=== PATIENT | male | born 1975 | race Caucasian/White ===

== ENCOUNTER → 2017-05-01 | Outpatient (CLI) | payer OTHER | LOC: LAB SHORT 18:12 → LAB 18:12 | DX: E10.65 Type 1 diabetes mellitus with hyperglycemia (principal); H35.00 Unspecified background retinopathy; R80.9 Proteinuria, unspecified | CPT/HCPCS: 82043 ==

== ENCOUNTER → 2017-06-04 | Outpatient (CLI) | payer OTHER | LOC: LAB 14:30 | DX: E10.65 Type 1 diabetes mellitus with hyperglycemia (principal); R80.9 Proteinuria, unspecified | CPT/HCPCS: 82043 ==

== ENCOUNTER → 2018-08-17 | Outpatient (CLI) | payer OTHER ==
[~2018-08-17] MED LIST: BASAGLAR; IFEREX; MIDO5 PO
[2018-08-18 18:31] LABS: Creatinine Urine 48.7 mg/dL (27.00-270.00); Protein, Urine Quantitative 24.5 mg/dL (0.0-11.9)
[2018-08-18 18:34] LABS: Microalbumin, Urine Quant. 84.1 mg/L (0.000-20.000)
== END | disposition home or self-care (01) ==
LOC: LAB FUT 08-11 14:15 → LAB UCHC 16:42 → EDSTATUS 08-18 14:15 → LAB FUT 08-18 14:15
PROVIDERS: Internal Medicine Nephrology
DX: N18.2 Chronic kidney disease, stage 2 (mild) (principal); D63.1 Anemia in chronic kidney disease; R73.09 Other abnormal glucose; N25.81 Secondary hyperparathyroidism of renal origin; E78.00 Pure hypercholesterolemia, unspecified; E55.9 Vitamin D deficiency, unspecified; D50.9 Iron deficiency anemia, unspecified; D52.8 Other folate deficiency anemias; D51.8 Other vitamin B12 deficiency anemias; R80.9 Proteinuria, unspecified
CPT/HCPCS: 81050; 82043; 82570; 84156

== ENCOUNTER 2018-09-23 17:51 | Emergency (ER) | payer OTHER ==
[~2018-09-23] VITALS: Ht 188 cm; Wt 77.1 kg
[2018-09-23] MEDS ORDERED: BASAGLAR (18:34)
[2018-09-23] MEDS ORDERED: MIDO5 PO (18:35)
[2018-09-23] MEDS ORDERED: IFEREX (18:35)
== END 2018-09-23 19:54 | disposition home or self-care (01) ==
LOC: ER 17:51
DX: H53.9 Unspecified visual disturbance (principal); Z87.891 Personal history of nicotine dependence
CPT/HCPCS: 99283

== ENCOUNTER → 2018-11-24 | Outpatient (CLI) | payer OTHER ==
[2018-11-24 18:55] LABS: BASOPHILS ABSOLUTE AUTO 0.04 K/mm3 (0.00-0.23); BASOPHILS PERCENT AUTO 1 % (0-2); EOSINOPHILS ABSOLUTE AUTO 0.18 K/mm3 (0.00-0.68); EOSINOPHILS PERCENT AUTO 2 % (0-6); Hematocrit 38.9 % (37.0-53.0); Hemoglobin 13.3 g/dL (13.5-17.5); IMMATURE GRAN ABSOLUTE AUTO 0.03 K/mm3 (0.00-0.10); IMMATURE GRAN PERCENT AUTO 0 % (0-1); LYMPHOCYTES ABSOLUTE AUTO 2.12 K/mm3 (0.84-5.20); LYMPHOCYTES PERCENT AUTO 27 % (21-46); MONOCYTES ABSOLUTE AUTO 0.88 K/mm3 (0.16-1.47); MONOCYTES PERCENT AUTO 11 % (4-13); Mean Corpuscular HGB 29.6 pg (26.0-34.0); Mean Corpuscular HGB Conc 34.2 g/dL (31.5-36.5); Mean Corpuscular Volume 87 fL (80-100); Mean Platelet Volume 10.9 fL (9.1-12.4); NEUTROPHILS ABSOLUTE AUTO 4.66 K/mm3 (1.96-9.15); NEUTROPHILS PERCENT AUTO 59 % (41-73); Platelet Count 244 K/mm3 (150-400); RDW Coefficient Variation 11.9 % (11.7-14.2); Red Blood Cell Count 4.49 M/mm3 (4.30-5.90); White Blood Cell Count 7.91 K/mm3 (4.00-11.30)
[2018-11-24 19:16] LABS: Alanine Aminotransfer (ALT/SGP 46 U/L (12-78); Albumin, Blood 3.7 g/dL (3.4-5.0); Albumin/Globulin Ratio 0.9 (0.8-1.8); Alk Phos 97 U/L (50-136); Anion Gap 6 mmol/L (6-16); Aspartate Aminotrans (AST/SGOT 23 U/L (12-37); Bilirubin, Total 0.3 mg/dL (0.1-1.0); Blood Urea Nitrogen 29 mg/dL (8-24); Bun/Creatinine Ratio 22.8 (12.0-20.0); CO2, Blood 27 mmol/L (21-32); Chloride, Blood 104 mmol/L (98-108); Creatinine, Blood 1.27 mg/dL (0.60-1.20); Globulin, Blood 3.9 g/dL (2.2-4.0); Glomerular Filtration Rate >60 (60-); Glucose, Blood 277 mg/dL (70-99); Potassium, Blood 4.4 mmol/L (3.5-5.5); Sodium, Blood 137 mmol/L (136-145); Total Protein, Blood 7.6 g/dL (6.4-8.2)
== END | disposition home or self-care (01) ==
LOC: LAB SHORT 18:22 → LAB 18:22
PROVIDERS: Nurse Practitioner Family
DX: E10.65 Type 1 diabetes mellitus with hyperglycemia (principal)
CPT/HCPCS: 80053; 83036; 85025

== ENCOUNTER → 2018-12-11 | Outpatient (CLI) | payer OTHER ==
[2018-12-12 20:42] LABS: Creatinine Urine 63.2 mg/dL (27.00-270.00); Protein, Urine Quantitative 26.5 mg/dL (0.0-11.9)
[2018-12-12 20:45] LABS: Microalbumin, Urine Quant. 98.8 mg/L (0.000-20.000)
== END | disposition home or self-care (01) ==
LOC: LAB UCHC 14:43 → LAB SHORT 14:43
PROVIDERS: Internal Medicine Nephrology
DX: N18.2 Chronic kidney disease, stage 2 (mild) (principal); D63.1 Anemia in chronic kidney disease; R80.9 Proteinuria, unspecified
CPT/HCPCS: 81050; 82043; 82570; 84156

== ENCOUNTER → 2019-10-04 | Outpatient (CLI) | payer OTHER ==
[2019-10-05 18:02] LABS: Protein, Urine Quantitative 17.8 mg/dL (0.0-11.9)
[2019-10-05 18:05] LABS: Creatinine Urine 36.7 mg/dL (27.00-270.00); Microalbumin, Urine Quant. 80.3 mg/L (0.000-20.000)
== END | disposition home or self-care (01) ==
LOC: LAB SHORT 19:13 → LAB 19:13
PROVIDERS: Internal Medicine Nephrology
DX: N18.2 Chronic kidney disease, stage 2 (mild) (principal); D63.1 Anemia in chronic kidney disease; R80.9 Proteinuria, unspecified
CPT/HCPCS: 81050; 82043; 82570; 84156

== ENCOUNTER → 2019-11-11 | Outpatient (CLI) | payer OTHER ==
[2019-11-11 18:06] LABS: BASOPHILS ABSOLUTE AUTO 0.04 K/mm3 (0.00-0.23); BASOPHILS PERCENT AUTO 0 % (0-2); EOSINOPHILS ABSOLUTE AUTO 0.27 K/mm3 (0.00-0.68); EOSINOPHILS PERCENT AUTO 3 % (0-6); Hematocrit 40.3 % (37.0-53.0); Hemoglobin 13.7 g/dL (13.5-17.5); IMMATURE GRAN ABSOLUTE AUTO 0.04 K/mm3 (0.00-0.10); IMMATURE GRAN PERCENT AUTO 0 % (0-1); LYMPHOCYTES ABSOLUTE AUTO 3.64 K/mm3 (0.84-5.20); LYMPHOCYTES PERCENT AUTO 40 % (21-46); MONOCYTES ABSOLUTE AUTO 0.88 K/mm3 (0.16-1.47); MONOCYTES PERCENT AUTO 10 % (4-13); Mean Corpuscular HGB 28.9 pg (26.0-34.0); Mean Corpuscular Volume 85 fL (80-100); Mean Platelet Volume 10.3 fL (9.1-12.4); NEUTROPHILS ABSOLUTE AUTO 4.16 K/mm3 (1.96-9.15); NEUTROPHILS PERCENT AUTO 46 % (41-73); Platelet Count 288 K/mm3 (150-400); RDW Coefficient Variation 12.4 % (11.7-14.2); RDW Standard Deviation 38.5 fL (35.1-46.3); Red Blood Cell Count 4.74 M/mm3 (4.30-5.90); White Blood Cell Count 9.03 K/mm3 (4.00-11.30)
[2019-11-11 19:44] LABS: Alanine Aminotransfer (ALT/SGP 31 U/L (12-78); Albumin, Blood 3.5 g/dL (3.4-5.0); Albumin/Globulin Ratio 0.8 (0.8-1.8); Alk Phos 102 U/L (50-136); Anion Gap 5 mmol/L (6-16); Aspartate Aminotrans (AST/SGOT 14 U/L (12-37); Bilirubin, Total 0.5 mg/dL (0.1-1.0); Blood Urea Nitrogen 19 mg/dL (8-24); Bun/Creatinine Ratio 15.6 (12.0-20.0); CO2, Blood 30 mmol/L (21-32); Chloride, Blood 106 mmol/L (98-108); Creatinine, Blood 1.22 mg/dL (0.60-1.20); Globulin, Blood 4.5 g/dL (2.2-4.0); Glomerular Filtration Rate >60 (60-); Glucose, Blood 111 mg/dL (70-99); Potassium, Blood 3.6 mmol/L (3.5-5.5); Sodium, Blood 141 mmol/L (136-145)
[2019-11-11 19:54] LABS: CHOL/HDL RATIO 3.6; Cholesterol 169 mg/dL (50-200); HDL Cholesterol 47 mg/dL (>39); LDL/HDL RATIO 2.2; Low Density Lipoprotein Chol 104 mg/dL (0-110); Triglycerides 88 mg/dL (30-160); Very Low Density Lipoprot Chol 17 mg/dL (6-32)
== END | disposition home or self-care (01) ==
LOC: PLD 16:58 → LAB SHORT 16:58
PROVIDERS: Nurse Practitioner Family
DX: E10.65 Type 1 diabetes mellitus with hyperglycemia (principal)
CPT/HCPCS: 80053; 80061; 83036; 85025

== ENCOUNTER 2020-12-08 01:10 | Day surgery (SDC) | payer OTHER | END 2020-12-08 23:03 | disposition home or self-care (01) | LOC: WOUND 01:10 | DX: E10.621 Type 1 diabetes mellitus with foot ulcer (principal); L97.422 Non-pressure chronic ulcer of left heel and midfoot with fat layer exposed; L89.893 Pressure ulcer of other site, stage 3; E10.42 Type 1 diabetes mellitus with diabetic polyneuropathy; E10.51 Type 1 diabetes mellitus with diabetic peripheral angiopathy without gangrene; I87.2 Venous insufficiency (chronic) (peripheral); Z79.4 Long term (current) use of insulin | CPT/HCPCS: G0463 ==

== ENCOUNTER 2020-12-22 01:31 | Day surgery (SDC) | payer OTHER | END 2020-12-22 23:00 | disposition home or self-care (01) | LOC: WOUND 01:31 | DX: E10.621 Type 1 diabetes mellitus with foot ulcer (principal); L97.422 Non-pressure chronic ulcer of left heel and midfoot with fat layer exposed; L89.893 Pressure ulcer of other site, stage 3; E10.42 Type 1 diabetes mellitus with diabetic polyneuropathy; E10.51 Type 1 diabetes mellitus with diabetic peripheral angiopathy without gangrene; I87.2 Venous insufficiency (chronic) (peripheral); Z79.4 Long term (current) use of insulin | CPT/HCPCS: A9270 ==

== ENCOUNTER 2020-12-30 03:46 | Day surgery (SDC) | payer OTHER | END 2020-12-30 22:54 | disposition home or self-care (01) | LOC: WOUND 03:46 | DX: E10.621 Type 1 diabetes mellitus with foot ulcer (principal); L97.422 Non-pressure chronic ulcer of left heel and midfoot with fat layer exposed; L89.893 Pressure ulcer of other site, stage 3; I87.2 Venous insufficiency (chronic) (peripheral); Z79.4 Long term (current) use of insulin ==

== ENCOUNTER 2021-01-12 08:00 | Day surgery (SDC) | payer OTHER | END 2021-01-12 23:59 | disposition home or self-care (01) | LOC: WOUND 08:00 | DX: E10.621 Type 1 diabetes mellitus with foot ulcer (principal); L97.529 Non-pressure chronic ulcer of other part of left foot with unspecified severity; L89.893 Pressure ulcer of other site, stage 3; E10.42 Type 1 diabetes mellitus with diabetic polyneuropathy; E10.51 Type 1 diabetes mellitus with diabetic peripheral angiopathy without gangrene; I87.2 Venous insufficiency (chronic) (peripheral); Z79.4 Long term (current) use of insulin | CPT/HCPCS: G0463 ==

== ENCOUNTER → 2021-04-10 | Outpatient (CLI) | payer OTHER ==
[2021-04-10 18:24] LABS: Albumin, Blood 3.9 g/dL (3.4-5.0); Anion Gap 3 mmol/L (6-16); Blood Urea Nitrogen 19 mg/dL (8-24); Bun/Creatinine Ratio 17.8 (12.0-20.0); CO2, Blood 29 mmol/L (21-32); Calcium, Blood 9.1 mg/dL (8.5-10.1); Chloride, Blood 110 mmol/L (98-108); Creatinine, Blood 1.07 mg/dL (0.60-1.20); Glomerular Filtration Rate >60 (60-); Glucose, Blood 57 mg/dL (70-99); Phosphorus, Blood 3.9 mg/dL (2.5-4.9); Potassium, Blood 4.3 mmol/L (3.5-5.5); Sodium, Blood 142 mmol/L (136-145)
[2021-04-10 18:36] LABS: CHOL/HDL RATIO 3.2; Cholesterol 177 mg/dL (50-200); HDL Cholesterol 56 mg/dL (>39); LDL/HDL RATIO 1.8; Low Density Lipoprotein Chol 103 mg/dL (0-110); Triglycerides 89 mg/dL (30-160); Very Low Density Lipoprot Chol 17 mg/dL (6-32)
[2021-04-10 18:39] LABS: Alanine Aminotransfer (ALT/SGP 46 U/L (12-78); Albumin, Blood 3.9 g/dL (3.4-5.0); Alk Phos 90 U/L (50-136); Anion Gap 1 mmol/L (6-16); Aspartate Aminotrans (AST/SGOT 20 U/L (12-37); Bilirubin, Total 0.5 mg/dL (0.1-1.0); Blood Urea Nitrogen 20 mg/dL (8-24); Bun/Creatinine Ratio 18.5 (12.0-20.0); CO2, Blood 30 mmol/L (21-32); Calcium, Blood 9.1 mg/dL (8.5-10.1); Chloride, Blood 111 mmol/L (98-108); Creatinine, Blood 1.08 mg/dL (0.60-1.20); Globulin, Blood 3.9 g/dL (2.2-4.0); Glomerular Filtration Rate >60 (60-); Glucose, Blood 56 mg/dL (70-99); Potassium, Blood 4.3 mmol/L (3.5-5.5); Sodium, Blood 142 mmol/L (136-145); Total Protein, Blood 7.8 g/dL (6.4-8.2)
== END ==
LOC: LAB 10:10 → LAB SHORT 10:10
PROVIDERS: Internal Medicine Nephrology; Nurse Practitioner Family
DX: E10.65 Type 1 diabetes mellitus with hyperglycemia (principal); N18.30 Chronic kidney disease, stage 3 unspecified; E10.22 Type 1 diabetes mellitus with diabetic chronic kidney disease
CPT/HCPCS: 80053; 80061; 80069; 83036; 85018

== ENCOUNTER → 2021-08-22 | Outpatient (CLI) | payer OTHER ==
[2021-08-22 17:50] LABS: Hematocrit 41.2 % (37.0-53.0); Hemoglobin 14.1 g/dL (13.5-17.5)
[2021-08-22 18:13] LABS: Albumin, Blood 3.8 g/dL (3.4-5.0); Anion Gap 4 mmol/L (6-16); Blood Urea Nitrogen 22 mg/dL (8-24); Bun/Creatinine Ratio 20.6 (12.0-20.0); CO2, Blood 29 mmol/L (21-32); Calcium, Blood 9.5 mg/dL (8.5-10.1); Chloride, Blood 111 mmol/L (98-108); Creatinine, Blood 1.07 mg/dL (0.60-1.20); Glomerular Filtration Rate 87 (60-); Glucose, Blood 82 mg/dL (70-99); Phosphorus, Blood 3.8 mg/dL (2.5-4.9); Potassium, Blood 4.1 mmol/L (3.5-5.5); Sodium, Blood 144 mmol/L (136-145)
== END | disposition home or self-care (01) ==
LOC: LAB 14:15 → LAB SHORT 14:15
PROVIDERS: Nurse Practitioner Family
DX: N18.2 Chronic kidney disease, stage 2 (mild) (principal); D63.1 Anemia in chronic kidney disease; D50.9 Iron deficiency anemia, unspecified; R76.9 Abnormal immunological finding in serum, unspecified; R94.5 Abnormal results of liver function studies; R94.6 Abnormal results of thyroid function studies
CPT/HCPCS: 80069; 82607; 85014; 85018

== ENCOUNTER → 2022-08-12 | Outpatient (CLI) | payer OTHER ==
[2022-08-13 13:35] LABS: Creatinine Urine 86.4 mg/dL (27.00-270.00); Microalbumin, Urine Quant. 53.5 mg/L (0.000-20.000); Protein, Urine Quantitative 40.9 mg/dL (0.0-11.9)
== END | disposition home or self-care (01) ==
LOC: LAB SHORT 11:58 → LAB 11:58
PROVIDERS: Internal Medicine Nephrology
DX: N18.30 Chronic kidney disease, stage 3 unspecified (principal); D63.1 Anemia in chronic kidney disease; N25.81 Secondary hyperparathyroidism of renal origin; E55.9 Vitamin D deficiency, unspecified; E29.1 Testicular hypofunction; R76.9 Abnormal immunological finding in serum, unspecified; R94.5 Abnormal results of liver function studies; R94.6 Abnormal results of thyroid function studies
CPT/HCPCS: 81050; 82043; 82570; 84156

== ENCOUNTER 2022-09-06 17:08 | Inpatient (IN) | payer OTHER ==
[~2022-09-06] VITALS: Ht 185.4 cm; Wt 83.0 kg
[~2022-09-06 17:08] MED LIST changes: +SULTRIDS PO
[2022-09-06 22:55] LABS: Percent Saturation 14.1 % (20.0-50.0)
[2022-09-07 00:01] VITALS: BP 110/62
[2022-09-07] MEDS ORDERED: MIDO5 PO (00:18)
[2022-09-07] MEDS ORDERED: BASAGLAR K100 UNIT/1 SC (00:20)
--- NOTE | 2022-09-07 02:07 | NUR ---
LMVM FOR DR. GARZA FOR PODIATRY CONSULT PER ORDER
[2022-09-07 05:42] VITALS: BP 124/65
--- NOTE | 2022-09-07 06:48 | NUR ---
SHIFT SUMMARY 09/06/22 2340 REPORT FROM ED RN- PT BROUGHT UP VIA PING- PT CBG 66- ORDER FOR PT NPO AFTER MIDNIGHT- GAVE PT HALF OF SANDWICH AND JUICE AND PT NPO AT 0015 - PT TOLERATED WELL- REPEAT CBG 97- PICTURE OF LEFT ANKLE WOUND AND SURGICAL INCISION TAKEN AND WOUND CARE DONE- PT DENIES PAIN- NS INFUSING WITHOUT PROBLEMS, PT SLEPT T/O REST OF SHIFT- 629 CBG 58- CALL TO DR. SILVA- ORDER FOR D50- GAVE PER ORDER - PT DENIES BEING SYMPTOMATIC - LAB IN DRAWING PT WHILE D50 GIVEN- BED LOW POSITION, CALL LIGHT WITHIN REACH
[2022-09-07 07:02] LABS: Hematocrit 24.2 % (37.0-53.0); Hemoglobin 8.1 g/dL (13.5-17.5); Mean Corpuscular HGB 28.5 pg (26.0-34.0); Mean Corpuscular HGB Conc 33.5 g/dL (31.5-36.5); Mean Corpuscular Volume 85 fL (80-100); Mean Platelet Volume 9.6 fL (9.1-12.4); Platelet Count 297 K/mm3 (150-400); RDW Coefficient Variation 12.5 % (11.7-14.2); RDW Standard Deviation 38.2 fL (35.1-46.3); Red Blood Cell Count 2.84 M/mm3 (4.30-5.90)
[2022-09-07 07:20] LABS: Bun/Creatinine Ratio 13.6 (12.0-20.0); Calcium, Blood 8.2 mg/dL (8.5-10.1); Creatinine, Blood 1.25 mg/dL (0.60-1.20); Magnesium, Blood 1.7 mg/dL (1.6-2.4); Potassium, Blood 3.8 mmol/L (3.5-5.5)
[2022-09-07 07:56] VITALS: BP 126/66
[2022-09-07 13:23] LABS: RETIC HGB EQUIVALENT 28.8 pg (28.20-36.60); RETICULOCYTE ABSOLUTE 0.0244 M/mm3 (0.0200-0.1100); RETICULOCYTE COUNT PERCENT 0.88 % (0.50-2.50)
--- NOTE | 2022-09-07 18:10 | NUR ---
SHIFT SUMMARY A&O X 4. VSS. PT NPO TIL AFTER LUNCH. OPERATOR SPECIALIST COMMUNICATIONS SAW PT & EXAMINED WOUND. NO SURG RECOMMENDED BY MD. WOUND CULTURE OBTAINED BY AND SENT TO LAB. PT NO LONGER NPO. L FOOT DRESSING REDRESSED A SECOND TIME THIS SHIFT. MD PACKED WOUND WITH IODOFORM TAPE, COVERD WITH ABD PAD AND WRAPPED WITH KERLEX. DINNER BG WAS 68, APPLE JUICE AND CHEESE GIVEN. DINNER ARRIVED SOON AFTER AND TRAY GIVEN TO PT. IN & OUT VISITING TODAY. PT IS PLEASANT & COOPERATIVE WITH ALL CARE.
[2022-09-07 19:39] VITALS: BP 129/65
[2022-09-08] VITALS (15 sets, daily range): BP systolic 93–135; BP diastolic 48–68
[2022-09-08 08:25] LABS: BASOPHILS ABSOLUTE AUTO 0.05 K/mm3 (0.00-0.23); BASOPHILS PERCENT AUTO 0 % (0-2); EOSINOPHILS ABSOLUTE AUTO 0.06 K/mm3 (0.00-0.68); EOSINOPHILS PERCENT AUTO 0 % (0-6); Hematocrit 25.3 % (37.0-53.0); Hemoglobin 8.6 g/dL (13.5-17.5); IMMATURE GRAN ABSOLUTE AUTO 0.51 K/mm3 (0.00-0.10); IMMATURE GRAN PERCENT AUTO 2 % (0-1); LYMPHOCYTES ABSOLUTE AUTO 1.67 K/mm3 (0.84-5.20); LYMPHOCYTES PERCENT AUTO 7 % (21-46); MONOCYTES ABSOLUTE AUTO 1.76 K/mm3 (0.16-1.47); MONOCYTES PERCENT AUTO 7 % (4-13); Mean Corpuscular Volume 85 fL (80-100); Mean Platelet Volume 9.3 fL (9.1-12.4); NEUTROPHILS ABSOLUTE AUTO 20.15 K/mm3 (1.96-9.15); NEUTROPHILS PERCENT AUTO 83 % (41-73); Platelet Count 360 K/mm3 (150-400); RDW Coefficient Variation 12.6 % (11.7-14.2); RDW Standard Deviation 39.4 fL (35.1-46.3); Red Blood Cell Count 2.97 M/mm3 (4.30-5.90)
[2022-09-08 08:44] LABS: Vancomycin, Trough 13.8 ug/mL (5.0-10.0)
[2022-09-08 08:45] LABS: Albumin, Blood 1.7 g/dL (3.4-5.0); Albumin/Globulin Ratio 0.3 (0.8-1.8); Bilirubin, Total 0.5 mg/dL (0.1-1.0); Bun/Creatinine Ratio 17.4 (12.0-20.0); Calcium, Blood 8.6 mg/dL (8.5-10.1); Creatinine, Blood 0.98 mg/dL (0.60-1.20); Globulin, Blood 5.3 g/dL (2.2-4.0); Potassium, Blood 3.7 mmol/L (3.5-5.5)
--- NOTE | 2022-09-08 11:28 | NUR ---
PT TO MRI FOR IMAGING OF L FOOT VIA W/C.
--- NOTE | 2022-09-08 17:18 | NUR ---
A. FIB RECEIVED CALL FROM [employer], PT CONVERTED TO A. FIB WITH HR 160-170'S. PLACED CALL TO DR. SCHULZ, ORDERS RECEIVED FOR EKG, DONE. EKG SHOWS A.FIB WITH RVR. MADE AWARE. ORDERS RECEIVED FOR CARDIZEM IVP & HEP GTT.
[2022-09-08 18:37] LABS: Anti-Xa UFH, PHA Monitoring <0.10 IU/mL; International Normalized Ratio 1.13; Prothrombin Time Results 11.8 Sec (9.7-11.5)
--- NOTE | 2022-09-08 19:06 | NUR ---
TRANSFER: PT TRANSFERRED FROM [place] [id number] TO U 6 @1830 DUE TO NEW ONSET AFIB. PT HR RANGING FROM 140-160'S, BP SOFT ON ARRIVAL MAP >65, FEBRILE, TEMP OF 102.2, PT ON ROOM AIR SATS >97%. POWERGLIDE PLACED IN ORA. CALL PLACED TO MD WITH NEW ORDERS RECEIVED, SEE EMAR. 184 PT HR 180'S, PT BECAME "DIZZY" AND STOPPED TALKING MID CONVERSATION. PT EXPRESSED HE HAS "NEVER FELT LIKE THAT BEFORE." 1849 PT CONVERTED FROM AFIB TO NSR. RICHELLE HELD. REPORT GIVEN TO NIGHTSHIFT MOHAN.
[2022-09-08 19:12] LABS: Bun/Creatinine Ratio 17.5 (12.0-20.0); Calcium, Blood 8.2 mg/dL (8.5-10.1); Creatinine, Blood 1.03 mg/dL (0.60-1.20); Potassium, Blood 3.9 mmol/L (3.5-5.5)
--- NOTE | 2022-09-08 19:24 | NUR ---
LATE ENTRY 1715: PLACED CALL TO ORTHO MD ANS SERVICE ([phone]) & LEFT MSG RE: REQUEST FOR ORTHO CONSULT FOR RECOMMENDED L BKA.
--- NOTE | 2022-09-08 19:27 | NUR ---
LATE ENTRY 1620: PER MD ORDER, TRANSFERRED PT TO PCU 6, BEDSIDE REPORT GIVEN. PT IN A. FIB W/RVR AFTER 1 TIME IVP OF 15MG CARDIZEM. MED GIVEN WITH JOURNEYMAN PIPEFITTER NOTIFIED, PT ON TELE MONITORING. BP'S WENT SOFT WITH PUSH, JUST PRIOR TO PUSH BP 131/76, 5 MINS AFTER 92/58. SUBSEQUENT BP'S 101/66 & 121/66. HR DID DECREASE FOR A FEW MINS TO LOW 100'S. JOURNEYMAN PIPEFITTER NOTIFIED THIS RN THAT PT ULTIMATELY RETURNED TO RATE OF 160-170'S APPROX 10-15 MINS POST CARDIZEM PUSH. MADE AWARE AND ORDERS RECEIVED TO TRASNSFER PT TO PCU TO BE ON CARDIZEM & HEPARIN GTTS. PT STATED HE WAS ASYMPTOMATIC THROUGHOUT.
--- NOTE | 2022-09-08 23:25 | NUR ---
ASSUMED CARE OF PT AT 1915 PT RESTING IN BED, HAS CONVERTED FROM A FIB TO SR, VERIFIED BY EKG. PER MD, DO NOT START HEPARIN DRIP UNLESS PT RETURN TO AFIB. PHARMACY NOTIFIED. BP WNL, NS BOLUS COMPLETED, VANCOMYCIN GIVEN AND LR STARTED. TO BEDSIDE TO VISIT, BOTH UPDATED ON CURRENT CONDITION AND POC. PT DISCUSSES PENDING AMPUTATION OF LEFT LEG BELOW THE KNEE, NO QUESTIONS OR CONCERNS VOICED. RN TO CONTINUE TO MONITOR.
[2022-09-09] VITALS (13 sets, daily range): BP systolic 116–153; BP diastolic 57–87
[2022-09-09 03:43] LABS: BASOPHILS ABSOLUTE AUTO 0.07 K/mm3 (0.00-0.23); BASOPHILS PERCENT AUTO 0 % (0-2); EOSINOPHILS ABSOLUTE AUTO 0.18 K/mm3 (0.00-0.68); EOSINOPHILS PERCENT AUTO 1 % (0-6); Hematocrit 24.7 % (37.0-53.0); Hemoglobin 8.2 g/dL (13.5-17.5); IMMATURE GRAN ABSOLUTE AUTO 0.71 K/mm3 (0.00-0.10); IMMATURE GRAN PERCENT AUTO 3 % (0-1); LYMPHOCYTES ABSOLUTE AUTO 2.14 K/mm3 (0.84-5.20); LYMPHOCYTES PERCENT AUTO 9 % (21-46); MONOCYTES ABSOLUTE AUTO 1.91 K/mm3 (0.16-1.47); MONOCYTES PERCENT AUTO 8 % (4-13); Mean Corpuscular HGB 28.4 pg (26.0-34.0); Mean Corpuscular HGB Conc 33.2 g/dL (31.5-36.5); Mean Corpuscular Volume 86 fL (80-100); Mean Platelet Volume 9.6 fL (9.1-12.4); NEUTROPHILS ABSOLUTE AUTO 18.87 K/mm3 (1.96-9.15); NEUTROPHILS PERCENT AUTO 79 % (41-73); Platelet Count 396 K/mm3 (150-400); RDW Coefficient Variation 12.7 % (11.7-14.2); RDW Standard Deviation 39.3 fL (35.1-46.3); Red Blood Cell Count 2.89 M/mm3 (4.30-5.90); White Blood Cell Count 23.88 K/mm3 (4.00-11.30)
[2022-09-09 04:07] LABS: Bun/Creatinine Ratio 17.6 (12.0-20.0); Calcium, Blood 8.4 mg/dL (8.5-10.1); Creatinine, Blood 1.02 mg/dL (0.60-1.20); Potassium, Blood 3.7 mmol/L (3.5-5.5)
--- NOTE | 2022-09-09 05:05 | NUR ---
NOC SHIFT SUMMARY A/O, SLEPT OFF AND ON, AROUSES EASILY TO VOICE. CONVERTED FROM AFIB W/RVR TO SR 80-90'S. 1 2.5 SECOND RUN OF SVT AT 0445, PT SLEEPING. SBP 110-120. ON ROOM AIR, 02 SAT > 94%. DENIES NAUSEA, NO BM THIS SHIFT. VOIDS USING URINAL. SKIN UNCHAGED, PICTURE OF LEFT FOOT IN CHART, PLAN CONTINUES TO BE BKA ON LEFT SIDE. PG TO RIGHT UPPER ARM, LR AT 150 ML/HR. RN TO CONTINUE TO MONITOR
--- NOTE | 2022-09-09 09:14 | NUR ---
Assumed care at approximately 0700. Bedside report received from nightshift RN. Pt resting in bed at time of report. On RA, no acute needs. Will continue to monitor.
--- NOTE | 2022-09-09 17:44 | NUR ---
Shift summary. Pt rested in bed throughout shift. Able to get up to bedside commode with one person standby assist. Pt continues to deny pain in L/foot. No acute changes this shift. See assessment/chart for further details. Will continue to monitor and report off to nightshift RN.
--- NOTE | 2022-09-09 20:00 | NUR ---
FIRE IGNITION & SAFETY EDUCATION PROVIDED TO PT & HIS
[2022-09-10] VITALS (16 sets, daily range): BP systolic 100–147; BP diastolic 52–83
[2022-09-10 06:05] LABS: Hematocrit 24.6 % (37.0-53.0); Hemoglobin 8.3 g/dL (13.5-17.5); Mean Corpuscular HGB 28.7 pg (26.0-34.0); Mean Corpuscular HGB Conc 33.7 g/dL (31.5-36.5); Mean Corpuscular Volume 85 fL (80-100); Mean Platelet Volume 9.1 fL (9.1-12.4); Platelet Count 426 K/mm3 (150-400); RDW Coefficient Variation 12.7 % (11.7-14.2); RDW Standard Deviation 39.5 fL (35.1-46.3); Red Blood Cell Count 2.89 M/mm3 (4.30-5.90); White Blood Cell Count 25.59 K/mm3 (4.00-11.30)
[2022-09-10 06:24] LABS: Albumin, Blood 1.5 g/dL (3.4-5.0); Albumin/Globulin Ratio 0.3 (0.8-1.8); Bilirubin, Total 0.3 mg/dL (0.1-1.0); Bun/Creatinine Ratio 17.3 (12.0-20.0); Calcium, Blood 8.8 mg/dL (8.5-10.1); Creatinine, Blood 1.04 mg/dL (0.60-1.20); Globulin, Blood 4.9 g/dL (2.2-4.0); Potassium, Blood 3.6 mmol/L (3.5-5.5); Total Protein, Blood 6.4 g/dL (6.4-8.2)
--- NOTE | 2022-09-10 06:27 | NUR ---
SHIFT SUMMARY NO CHANGES NOTED, PT IS A&O X4, ON RA, TYLENOL GIVEN X1 FOR TEMP OF 101.7, OTHER VSS, ABX & LR INFUSING PER EMAR, PT DENIES PAIN, DRSG TO LEFT FOOT CHANGED THIS AM, PT HAS BEEN NPO SINCE MIDNIGHT PENDING POSSIBLE SURGERY, PT RESTING WUIETLY AT THIS TIME, CALL LIGHT IN REACH, WCTM & REPORT TO ONCOMING RN
[2022-09-10 06:53] LABS: BAND PERCENT MAN 6 % (0-8); BASOPHILS PERCENT MAN 0 % (0-2); EOSINOPHILS PERCENT MAN 0 % (0-6); LYMPHOCYTES ABSOLUTE MAN 1.02 K/mm3 (0.84-5.20); LYMPHOCYTES PERCENT MAN 4 % (21-46); MONOCYTES ABSOLUTE MAN 1.02 K/mm3 (0.16-1.47); MONOCYTES PERCENT MAN 4 % (4-13); NEUTROPHILS ABSOLUTE MAN 23.54 K/mm3 (1.96-9.15); SEG NEUTROPHILS PERCENT MAN 86 % (41-73); TOTAL CELLS COUNTED 100
--- NOTE | 2022-09-10 15:35 | NUR ---
SHIFT SUMMARY/TRANSFER OF CARE: PT HAS BEEN A&Ox4, COOPERATIVE W/CARE, ABLE TO COMMUNICATE NEEDS APPROPRIATELY. O2 SATS >93% ON RA, PT DENIES SOB. SR ON MONITOR W/RATE 90s, PT DENIES CHEST PAIN/PRESSURE. ELEVATED TEMPERATURE AND PT C/O FEELING "QUEASY" T/OUT THE MORNING, PT DECLINES PRN MEDICATION. PT NPO SINCE MIDNIGHT, TO SURGERY WHERE HE CONTINUES AT THIS TIME. PT RECEIVES NEW ROOM ASSIGNMENT, REPORT HAS BEEN GIVEN TO MOHAN PENA.
--- NOTE | 2022-09-10 18:29 | NUR ---
RECEIVED REPORT FROM DAY SURGCLIFF AT 1610, PT HAD LEFT BKA. SOCK IN PLACE OVER DRESSING, NO BLEEDING THROUGH. PT PLEASANT UPON ARRIVAL. A/O, MORE AWAKE THIS SKYLER, IS TELLING JOKES. AT BEDSIDE. HE DID HAVE MUCH SWEATING AND DIAPHORETIC. DR WILKINSON NOTIFIED. IS AWARE. HE ALSO ADVISED US TO KEEP PT IN ATTENDS. HAD DIARRHEA X2 STOOL AT SURG. NEEDS TO KEEP LEG CLEAN AND DRY. VSS T/OUT THIS SHIFT SINCE TRANSFER HERE. SWEATING STOPPED. WILL CONTINUE TO MONITOR. DR WILKINSON OKAYED ADA SOFT BITE DIET. PT PASSED BEDSIDE SWALLOW WITH WATER AND JELLO. TRAY ORDERED. WILL GIVE ABX WHEN PRIOR DOSE FINISHED. WILL GIVE INSULIN WHEN HAVE TRAY. BED IN LOW POSITION, CALL LITE IN REACH, CALLS APPROP
[2022-09-11 00:05] VITALS: BP 129/85
[2022-09-11 04:11] VITALS: BP 130/79
--- NOTE | 2022-09-11 05:31 | NUR ---
SHIFT SUMMARY PT HAD NO COMPLAINTS THIS SHIFT. PT HAS BEEN PLESANT AND COOPERATIVE. PT HAS BEEN SLEEPING OFF AND ON. PT STATES HE FELLS LESS DRAINED TO DAY. PT DRESSING HAS REMAINED CLEAN DRY AND INTACT. CALL LIGHT IN REACH.
[2022-09-11 08:14] LABS: BASOPHILS ABSOLUTE AUTO 0.04 K/mm3 (0.00-0.23); BASOPHILS PERCENT AUTO 0 % (0-2); EOSINOPHILS ABSOLUTE AUTO 0.01 K/mm3 (0.00-0.68); EOSINOPHILS PERCENT AUTO 0 % (0-6); Hematocrit 26.4 % (37.0-53.0); IMMATURE GRAN ABSOLUTE AUTO 0.67 K/mm3 (0.00-0.10); IMMATURE GRAN PERCENT AUTO 3 % (0-1); LYMPHOCYTES ABSOLUTE AUTO 1.61 K/mm3 (0.84-5.20); LYMPHOCYTES PERCENT AUTO 8 % (21-46); MONOCYTES ABSOLUTE AUTO 1.27 K/mm3 (0.16-1.47); MONOCYTES PERCENT AUTO 6 % (4-13); Mean Corpuscular HGB 28.7 pg (26.0-34.0); Mean Corpuscular HGB Conc 34.1 g/dL (31.5-36.5); Mean Corpuscular Volume 84 fL (80-100); Mean Platelet Volume 9.2 fL (9.1-12.4); NEUTROPHILS PERCENT AUTO 83 % (41-73); Platelet Count 517 K/mm3 (150-400); RDW Coefficient Variation 12.9 % (11.7-14.2); RDW Standard Deviation 38.6 fL (35.1-46.3); Red Blood Cell Count 3.14 M/mm3 (4.30-5.90)
[2022-09-11 08:31] LABS: Vancomycin, Trough 16.1 ug/mL (5.0-10.0)
[2022-09-11 08:33] VITALS: BP 128/83
[2022-09-11 08:33] LABS: Albumin, Blood 1.5 g/dL (3.4-5.0); Albumin/Globulin Ratio 0.3 (0.8-1.8); Bilirubin, Total 0.3 mg/dL (0.1-1.0); Bun/Creatinine Ratio 22.3 (12.0-20.0); Calcium, Blood 8.3 mg/dL (8.5-10.1); Creatinine, Blood 0.9 mg/dL (0.60-1.20); Globulin, Blood 5.1 g/dL (2.2-4.0); Potassium, Blood 3.7 mmol/L (3.5-5.5); Total Protein, Blood 6.6 g/dL (6.4-8.2)
[2022-09-11 14:51] VITALS: BP 110/69
[2022-09-11 17:36] LABS: Hemoglobin 8.9 g/dL (13.5-17.5); Mean Corpuscular HGB 28.6 pg (26.0-34.0); Mean Corpuscular HGB Conc 34.2 g/dL (31.5-36.5); Mean Corpuscular Volume 84 fL (80-100); Mean Platelet Volume 9.1 fL (9.1-12.4); Platelet Count 579 K/mm3 (150-400); RDW Standard Deviation 39.3 fL (35.1-46.3); Red Blood Cell Count 3.11 M/mm3 (4.30-5.90); White Blood Cell Count 17.71 K/mm3 (4.00-11.30)
[2022-09-11 18:11] LABS: Albumin, Blood 1.5 g/dL (3.4-5.0); Albumin/Globulin Ratio 0.3 (0.8-1.8); Bilirubin, Total 0.2 mg/dL (0.1-1.0); Bun/Creatinine Ratio 24.8 (12.0-20.0); Creatinine, Blood 1.05 mg/dL (0.60-1.20); Globulin, Blood 5.1 g/dL (2.2-4.0); Potassium, Blood 3.6 mmol/L (3.5-5.5); Total Protein, Blood 6.6 g/dL (6.4-8.2)
--- NOTE | 2022-09-11 19:49 | NUR ---
END OF SHIFT SUMMARY: PATIENT DENIED PAIN THROUGHOUT THE SHIFT. PATIENT INDEPENDENT IN THE BED WITH MOVEMENT. PATIENT TOLERATING IV ANTIBIOTICS WELL. NO INCONTINENT STOOL DURING THE SHIFT. PATIENT HAS AN EXCELLENT APPETITE. PATIENT'S PARTNER IN THE ROOM THIS AFTERNOON. SHE IS SUPPORTIVE AND ENCOURAGING OF THE PATIENT. PER DR. WILKINSON, THE DRESSING WILL BE CHANGED ON SATURDAY UNLESS THE DRESSING BECOMES SOILED. REQUESTED SUPPLIES PLACED IN THE ROOM FOR THE DRESING CHANGE. CURRENTLY DRESSING IS C/D/I.
[2022-09-11 20:43] VITALS: BP 112/79
[2022-09-12 01:49] VITALS: BP 132/79
--- NOTE | 2022-09-12 04:58 | NUR ---
MED AIDE SUMMARY NO ACUTE EVENTS THROUGHOUT THE NIGHT. A&OX4. PATIENT EFFECTIVELY COMMUNICATES NEEDS. VSS. RR EVEN AND UNLABORED ON RA. NO PAIN REPORTED TO THIS RN. PATIENT IS TOLERATING IV ABO THERAPY. LEFT BKA DRESSING C/D/I. NO ACUTE SIGNS OR SYMPTOMS. BED LOW AND LOCKED. CALL LIGHT WITHIN REACH. THIS RN WILL CONTINUE TO MONITOR.
[2022-09-12 07:24] VITALS: BP 131/83
[2022-09-12 15:51] VITALS: BP 134/74
--- NOTE | 2022-09-12 16:54 | NUR ---
PT IS A/OX4, PLEASANT AND COOPERATIVE. THE PT IS POST OP DAY #2. PT HAS BEEN BED REST. TODAY THE PT WORKED WITH BOTH THE PHYSICAL AND OCCUPATIONAL THERAPIST. PT REPORTED THAT HE HAD FELT SOME SORT OF HEART PALPATION EARLIER TODAY FOR ONLY A SHORT PERIOD AND FEEL ASLEEP AND THEN FELT NORMAL. THE PTS VS WERE TAKEN AND ARE WITHIN NORMAL LIMITS. PT DENIED ANY CHEST PAIN OR SOB AT THE TIME. PTS IS AT THE BEDSIDE. CALL LIGHT IN REACH. WILL CONTINUE TO MONITOR AND ASSESS FOR CHANGES
[2022-09-12 20:23] VITALS: BP 126/74
[2022-09-13 02:53] VITALS: BP 135/78
--- NOTE | 2022-09-13 04:48 | NUR ---
SENIOR PLANNING ANALYST SUMMARY NO ACUTE EVENTS THIS SHIFT. A&OX4. PATIENT EFFECTIVELY COMMUNICATES NEEDS. VSS. RR EVEN AND UNLABORED ON RA. NO PAIN REPORTED THIS SHIFT. LEFT BKA DRESSING CHANGED BY DR. WILKINSON ON DAY SHIFT, 09/12. DRESSING IS C/D/I AND TO BE CHANGED Q48 HOURS. PATIENT IS TOLERATING IV ABO THERAPY. BED LOW AND LOCKED. CALL LIGHT WITHIN REACH. THIS RN WILL CONTINUE TO MONITOR.
[2022-09-13 08:05] VITALS: BP 112/73
[2022-09-13 11:21] LABS: SARS-Cov-2 (COVID-19) PCR, MMC NEGATIVE (NEGATIVE)
[2022-09-13] MEDS ORDERED: VISBIOME 112.51 EACH PO (12:31)
[2022-09-13] MEDS ORDERED: AMOCLA875 PO (12:32)
--- NOTE | 2022-09-13 12:54 | NUR ---
REPORT CALLED TO RN AT [facility]. PT TO BE PICKED UP FOR TRANSPOERT AT 1400
--- NOTE | 2022-09-13 16:08 | NUR ---
PT DISCHARGED 1415 THE PT WAS TRANSFERED TO [facility]IA WHEEL[facility]IR.PT ACCOMPANIED BY THE CODING TECHNICIAN AND HIS . REPORT CALLED TO THE RECEIVING RN EARLIER.
== END 2022-09-13 14:16 | DRG 854 ==
LOC: ER 17:08 → PCU 23:05 → MEDS 23:05 → PCU 09-08 18:29 → MEDS 09-10 16:22 → ENPENDDIS 09-13 13:33 → MEDS 09-13 14:16
PROVIDERS: Family Medicine; Family Medicine Adult Medicine; Hospitalist; Orthopaedic Surgery; Pharmacist; Student in an Organized Health Care Education/Training Program; ADMIT Nurse Practitioner Acute Care
PROC: 3E03329 Introduction of Other Anti-infective into Peripheral Vein, Percutaneous Approach (ICD-10-PCS; 2022-09-06)
PROC: 0H9NXZZ Drainage of Left Foot Skin, External Approach (ICD-10-PCS; 2022-09-07)
PROC: 0Y6J0Z1 Detachment at Left Lower Leg, High, Open Approach (ICD-10-PCS; principal; 2022-09-10 13:00)
DX: A41.4 Sepsis due to anaerobes (principal); E87.1 Hypo-osmolality and hyponatremia; L97.329 Non-pressure chronic ulcer of left ankle with unspecified severity; N17.9 Acute kidney failure, unspecified; M86.672 Other chronic osteomyelitis, left ankle and foot; E11.69 Type 2 diabetes mellitus with other specified complication; E11.621 Type 2 diabetes mellitus with foot ulcer; E11.40 Type 2 diabetes mellitus with diabetic neuropathy, unspecified; J45.909 Unspecified asthma, uncomplicated; E11.22 Type 2 diabetes mellitus with diabetic chronic kidney disease; D63.1 Anemia in chronic kidney disease; R79.0 Abnormal level of blood mineral; R74.01 Elevation of levels of liver transaminase levels; N18.9 Chronic kidney disease, unspecified; R74.8 Abnormal levels of other serum enzymes; L89.611 Pressure ulcer of right heel, stage 1; E11.622 Type 2 diabetes mellitus with other skin ulcer; M19.90 Unspecified osteoarthritis, unspecified site; D75.838 Other thrombocytosis; Z20.822 Contact with and (suspected) exposure to COVID-19; I48.91 Unspecified atrial fibrillation; Z56.0 Unemployment, unspecified; Z79.4 Long term (current) use of insulin; Z87.891 Personal history of nicotine dependence; Z89.421 Acquired absence of other right toe(s); Z79.899 Other long term (current) drug therapy; Z86.19 Personal history of other infectious and parasitic diseases; Z98.890 Other specified postprocedural states
CPT/HCPCS: 36415; 73620; 73723; 76705; 80048; 80053; 80202; 82728; 82947; 82977; 83540; 83550; 83605; 83735; 85007; 85025; 85027; 85045; 85520; 85610; 87040; 87070; 87075; 87205; 88307; 93005; 93010; 94760; 94762; 96365; 96367; 97110; 97162; 97166; 97530; 99285-25; A9270; A9579; C1751; J0295; J0692; J0696; J1100; J1650; J1815; J2250; J2371; J2405; J2704; J2795; J3010; J3370; J7030; J7050; J7120; U0002

== ENCOUNTER 2022-09-26 11:46 | Emergency (ER) | payer OTHER ==
[~2022-09-26] VITALS: Ht 185.4 cm; Wt 77.1 kg
[~2022-09-26 11:46] MED LIST changes: +AMOCLA875 PO; +BASAGLAR K100 UNIT/1 SC; +VISBIOME 112.51 EACH PO
[2022-09-26 12:48] LABS: BASOPHILS ABSOLUTE AUTO 0.04 K/mm3 (0.00-0.23); BASOPHILS PERCENT AUTO 1 % (0-2); EOSINOPHILS ABSOLUTE AUTO 0.16 K/mm3 (0.00-0.68); EOSINOPHILS PERCENT AUTO 2 % (0-6); Hematocrit 32.2 % (37.0-53.0); Hemoglobin 10.7 g/dL (13.5-17.5); IMMATURE GRAN ABSOLUTE AUTO 0.06 K/mm3 (0.00-0.10); IMMATURE GRAN PERCENT AUTO 1 % (0-1); LYMPHOCYTES ABSOLUTE AUTO 2.08 K/mm3 (0.84-5.20); LYMPHOCYTES PERCENT AUTO 26 % (21-46); MONOCYTES ABSOLUTE AUTO 0.98 K/mm3 (0.16-1.47); MONOCYTES PERCENT AUTO 12 % (4-13); Mean Corpuscular HGB 29.6 pg (26.0-34.0); Mean Corpuscular HGB Conc 33.2 g/dL (31.5-36.5); Mean Corpuscular Volume 89 fL (80-100); NEUTROPHILS ABSOLUTE AUTO 4.75 K/mm3 (1.96-9.15); NEUTROPHILS PERCENT AUTO 59 % (41-73); Platelet Count 366 K/mm3 (150-400); RDW Coefficient Variation 15.7 % (11.7-14.2); RDW Standard Deviation 50.9 fL (35.1-46.3); Red Blood Cell Count 3.62 M/mm3 (4.30-5.90); White Blood Cell Count 8.07 K/mm3 (4.00-11.30)
[2022-09-26 13:09] LABS: Albumin/Globulin Ratio 0.6 (0.8-1.8); Bilirubin, Total 0.4 mg/dL (0.1-1.0); Calcium, Blood 9.4 mg/dL (8.5-10.1); Creatinine, Blood 1.15 mg/dL (0.60-1.20); Globulin, Blood 4.9 g/dL (2.2-4.0); Total Protein, Blood 7.9 g/dL (6.4-8.2)
[2022-09-26 15:01] VITALS: BP 100/63
== END 2022-09-26 15:01 | disposition home or self-care (01) ==
LOC: ER 11:46
PROVIDERS: Physician Assistant
DX: M79.605 Pain in left leg (principal); E11.9 Type 2 diabetes mellitus without complications; Z79.4 Long term (current) use of insulin; Z79.899 Other long term (current) drug therapy; Z87.891 Personal history of nicotine dependence; Z89.432 Acquired absence of left foot
CPT/HCPCS: 73701; 80053; 85025; Q9967

== ENCOUNTER 2023-02-04 14:19 | Emergency (ER) | payer OTHER ==
[~2023-02-04] VITALS: Ht 185.4 cm; Wt 81.7 kg
[2023-02-04 15:26] LABS: Hematocrit 32.9 % (37.0-53.0); Hemoglobin 11.5 g/dL (13.5-17.5); Mean Corpuscular Volume 86 fL (80-100); Mean Platelet Volume 9.9 fL (9.1-12.4); Platelet Count 432 K/mm3 (150-400); RDW Standard Deviation 37.2 fL (35.1-46.3); Red Blood Cell Count 3.83 M/mm3 (4.30-5.90); White Blood Cell Count 26.85 K/mm3 (4.00-11.30)
[2023-02-04 15:41] LABS: Albumin, Blood 2.9 g/dL (3.4-5.0); Albumin/Globulin Ratio 0.6 (0.8-1.8); Bilirubin, Total 0.3 mg/dL (0.1-1.0); Bun/Creatinine Ratio 16.8 (12.0-20.0); Calcium, Blood 9.2 mg/dL (8.5-10.1); Creatinine, Blood 1.43 mg/dL (0.60-1.20); Globulin, Blood 4.8 g/dL (2.2-4.0); Potassium, Blood 4.9 mmol/L (3.5-5.5); Total Protein, Blood 7.7 g/dL (6.4-8.2)
[2023-02-04 16:09] LABS: BAND PERCENT MAN 5 % (0-8); BASOPHILS ABSOLUTE MAN 0.26 K/mm3 (0.00-0.23); BASOPHILS PERCENT MAN 1 % (0-2); EOSINOPHILS ABSOLUTE MAN 0.26 K/mm3 (0.00-0.68); EOSINOPHILS PERCENT MAN 1 % (0-6); LYMPHOCYTES PERCENT MAN 3 % (21-46); MONOCYTES ABSOLUTE MAN 1.07 K/mm3 (0.16-1.47); MONOCYTES PERCENT MAN 4 % (4-13); NEUTROPHILS ABSOLUTE MAN 24.43 K/mm3 (1.96-9.15); SEG NEUTROPHILS PERCENT MAN 86 % (41-73); TOTAL CELLS COUNTED 100
[2023-02-04 17:58] VITALS: BP 132/75
[2023-02-04] MEDS ORDERED: Cleocin HCl300 MG PO (21:01)
== END 2023-02-04 21:00 | disposition home or self-care (01) ==
LOC: ER 14:19
PROVIDERS: Student in an Organized Health Care Education/Training Program
DX: L03.221 Cellulitis of neck (principal); E11.9 Type 2 diabetes mellitus without complications; Z79.899 Other long term (current) drug therapy; Z79.4 Long term (current) use of insulin; Z87.891 Personal history of nicotine dependence
CPT/HCPCS: 70491; 80053; 83605; 85025; 87070; 87077; 87147; 87186; 87205; 96360; 99284-25; A9270; J7030; Q9967

== ENCOUNTER → 2023-04-09 | Outpatient (CLI) | payer OTHER ==
[~2023-04-09] MED LIST changes: +Cleocin HCl300 MG PO
[2023-04-09 17:33] LABS: BASOPHILS ABSOLUTE AUTO 0.05 K/mm3 (0.00-0.23); BASOPHILS PERCENT AUTO 1 % (0-2); EOSINOPHILS ABSOLUTE AUTO 0.42 K/mm3 (0.00-0.68); EOSINOPHILS PERCENT AUTO 5 % (0-6); Hemoglobin 12.5 g/dL (13.5-17.5); IMMATURE GRAN ABSOLUTE AUTO 0.06 K/mm3 (0.00-0.10); IMMATURE GRAN PERCENT AUTO 1 % (0-1); LYMPHOCYTES ABSOLUTE AUTO 2.07 K/mm3 (0.84-5.20); LYMPHOCYTES PERCENT AUTO 22 % (21-46); MONOCYTES ABSOLUTE AUTO 1.05 K/mm3 (0.16-1.47); MONOCYTES PERCENT AUTO 11 % (4-13); Mean Corpuscular HGB 29.4 pg (26.0-34.0); Mean Corpuscular HGB Conc 32.9 g/dL (31.5-36.5); Mean Corpuscular Volume 89 fL (80-100); Mean Platelet Volume 10.5 fL (9.1-12.4); NEUTROPHILS ABSOLUTE AUTO 5.77 K/mm3 (1.96-9.15); NEUTROPHILS PERCENT AUTO 61 % (41-73); Platelet Count 315 K/mm3 (150-400); RDW Coefficient Variation 12.5 % (11.7-14.2); Red Blood Cell Count 4.25 M/mm3 (4.30-5.90); White Blood Cell Count 9.42 K/mm3 (4.00-11.30)
[2023-04-09 18:46] LABS: Percent Saturation 12.5 % (20.0-50.0)
[2023-04-09 19:07] LABS: Thyroid Stimulating Hormone 1.53 uIU/mL (0.360-4.800)
[2023-04-11 14:12] LABS: A/G RATIO 1.5 (1.2-2.2); BILIRUBIN, TOTAL 0.3 mg/dL (0.0-1.2); CALCIUM, SERUM 9.4 mg/dL (8.7-10.2); CREATININE, SERUM 1.28 mg/dL (0.76-1.27); GLOBULIN, TOTAL 2.8 g/dL (1.5-4.5); POTASSIUM, SERUM 4.9 mmol/L (3.5-5.2); PROTEIN, TOTAL, SERUM 6.9 g/dL (6.0-8.5)
[2023-04-11 14:55] LABS: GLUTAMIC ACID DECARBOXYLASE AB 5.5 IU/mL (0.0-5.0)
== END | disposition home or self-care (01) ==
LOC: LAB 16:30 → LAB SHORT 16:30
PROVIDERS: Family Medicine
DX: D50.9 Iron deficiency anemia, unspecified (principal); E10.8 Type 1 diabetes mellitus with unspecified complications
CPT/HCPCS: 80053; 82607; 82728; 83036; 83540; 83550; 84443; 85025; 86341

== ENCOUNTER → 2023-11-12 | Outpatient (CLI) | payer OTHER | END | disposition home or self-care (01) | LOC: LAB 16:17 → LAB SHORT 16:17 | DX: R30.0 Dysuria (principal) | CPT/HCPCS: 87086; 87186 ==

== ENCOUNTER → 2023-12-09 | Outpatient (CLI) | payer OTHER ==
[~2023-12-09] MED LIST changes: +ACET500 PO; +CEFP200 PO; +ONDA4ODT MM; +TAMS.4ER PO
== END ==
LOC: LAB SHORT 17:07 → LAB 17:07
DX: R39.198 Other difficulties with micturition (principal)
CPT/HCPCS: 87086; 87186

== ENCOUNTER 2023-12-13 19:45 | Emergency (ER) | payer OTHER ==
[~2023-12-13] VITALS: Ht 185.4 cm; Wt 90.7 kg
[~2023-12-13 19:45] MED LIST changes: -ACET500 PO; -CEFP200 PO; -ONDA4ODT MM; -TAMS.4ER PO
[2023-12-13] MEDS ORDERED: NS 1,000 ML IV SCH ×2 (20:00→22:55)
[2023-12-13] MEDS ORDERED: Ondansetron HCl 2 MG / ML 2ML Vial IV ONE ×2 (20:00→22:55)
[2023-12-13 20:16] LABS: BASOPHILS ABSOLUTE AUTO 0.03 K/mm3 (0.00-0.23); BASOPHILS PERCENT AUTO 0 % (0-2); EOSINOPHILS ABSOLUTE AUTO 0.03 K/mm3 (0.00-0.68); EOSINOPHILS PERCENT AUTO 0 % (0-6); Hematocrit 31.7 % (37.0-53.0); Hemoglobin 11.3 g/dL (13.5-17.5); IMMATURE GRAN ABSOLUTE AUTO 0.13 K/mm3 (0.00-0.10); IMMATURE GRAN PERCENT AUTO 1 % (0-1); LYMPHOCYTES ABSOLUTE AUTO 1.03 K/mm3 (0.84-5.20); LYMPHOCYTES PERCENT AUTO 5 % (21-46); MONOCYTES ABSOLUTE AUTO 1.49 K/mm3 (0.16-1.47); MONOCYTES PERCENT AUTO 8 % (4-13); Mean Corpuscular HGB 28.9 pg (26.0-34.0); Mean Corpuscular HGB Conc 35.6 g/dL (31.5-36.5); Mean Corpuscular Volume 81 fL (80-100); Mean Platelet Volume 9.4 fL (9.1-12.4); NEUTROPHILS ABSOLUTE AUTO 16.43 K/mm3 (1.96-9.15); NEUTROPHILS PERCENT AUTO 86 % (41-73); Platelet Count 357 K/mm3 (150-400); RDW Coefficient Variation 12.9 % (11.7-14.2); Red Blood Cell Count 3.91 M/mm3 (4.30-5.90); White Blood Cell Count 19.14 K/mm3 (4.00-11.30)
[2023-12-13 20:19] LABS: Base Excess Venous 3.5 mmol/L; Bicarbonate Venous 27.5 mmol/L (24.0-30.0); PCO2 Venous 27.3 mmHg (38-42)
[2023-12-13 20:21] LABS: pH Blood Venous 7.58 (7.34-7.37)
[2023-12-13 20:36] LABS: Albumin, Blood 2.6 g/dL (3.4-5.0); Albumin/Globulin Ratio 0.4 (0.8-1.8); Bilirubin, Total 0.5 mg/dL (0.1-1.0); Bun/Creatinine Ratio 11.7 (12.0-20.0); Calcium, Blood 9.9 mg/dL (8.5-10.1); Creatinine, Blood 1.97 mg/dL (0.60-1.20); Globulin, Blood 6.9 g/dL (2.2-4.0); Potassium, Blood 3.7 mmol/L (3.5-5.5); Total Protein, Blood 9.5 g/dL (6.4-8.2)
[2023-12-13] MEDS ORDERED: Morphine Sulfate 4 MG/1 ML Injection IV ONE (22:55)
[2023-12-14] MEDS ORDERED: ONDA4ODT MM (00:50)
[2023-12-14] MEDS ORDERED: CEFP200 PO (00:50)
[2023-12-14] MEDS ORDERED: ACET500 PO (00:50)
[2023-12-14] MEDS ORDERED: TAMS.4ER PO (02:06)
[2023-12-14 02:08] LABS: Source, Urine Clean Catch
[2023-12-14 02:19] LABS: Bilirubin, Urine Neg (Neg); Blood, Urine 4+ (Neg); Glucose Qualitative, Urine 4+ (Neg); Ketones, Urine 1+ (Neg); Leukocyte Esterase, Urine 3+ (Neg); Nitrite, Urine Pos (Neg); Protein, Urine 2+ (Neg); Urobilinogen, Urine NORM (Normal)
[2023-12-14 02:25] LABS: Appearance, Urine Hazy (Clear); Color, Urine Yellow (P-Yellow)
[2023-12-14 02:27] LABS: Amorphous Light (0-Heavy); Bacteria Many /hpf; Squamous Epithelial Cells Few /hpf (Few); White Blood Cells, Urine 50-100 /hpf (0-5)
[2023-12-14] MEDS ORDERED: CefTRIAXone Sodium 2,000 MG in NS 100 ML IV ONE (02:50)
[2023-12-14 06:30] VITALS: BP 115/72
== END 2023-12-14 06:40 | disposition short-term general hospital (02) ==
LOC: ER 19:45
PROVIDERS: Emergency Medicine; Physician Assistant
DX: N13.2 Hydronephrosis with renal and ureteral calculous obstruction (principal); R11.2 Nausea with vomiting, unspecified; Z79.899 Other long term (current) drug therapy; Z79.4 Long term (current) use of insulin; E11.9 Type 2 diabetes mellitus without complications; Z87.891 Personal history of nicotine dependence
CPT/HCPCS: 36415; 74177; 80053; 81001; 82803; 82947; 83605; 83690; 85025; 87040; 87077; 93005; 93010; 96361; 96365; 96375; 99285-25; J0696; J2270; J2405; J7030; Q9967

== ENCOUNTER → 2024-03-16 | Outpatient (CLI) | payer OTHER ==
[~2024-03-16] MED LIST changes: +ACET500 PO; +CEFP200 PO; +ONDA4ODT MM; +TAMS.4ER PO
[2024-03-21 08:50] LABS: CORTISOL,U FREE - RATIO TO CRT 23.45 ug/g CRT; CORTISOL,URINE FREE - PER 24H 36.7 ug/d (<=60.0); CREATININE,URINE - PER 24H 1566 mg/d (1000-2500); CREATININE,URINE - PER VOLUME 87 mg/dL; HOURS COLLECTED 24 hr; TOTAL VOLUME 1800 mL
== END ==
LOC: LAB SHORT 03-16 15:11 → LAB 15:11 → LAB SHORT 15:11 → LAB FUT 03-13 16:30
PROVIDERS: Internal Medicine Nephrology
DX: N18.2 Chronic kidney disease, stage 2 (mild) (principal); D63.1 Anemia in chronic kidney disease; N25.81 Secondary hyperparathyroidism of renal origin; E55.9 Vitamin D deficiency, unspecified; E78.00 Pure hypercholesterolemia, unspecified; R76.9 Abnormal immunological finding in serum, unspecified; R94.5 Abnormal results of liver function studies; R94.6 Abnormal results of thyroid function studies; D51.8 Other vitamin B12 deficiency anemias; D52.8 Other folate deficiency anemias; D50.9 Iron deficiency anemia, unspecified
CPT/HCPCS: 81050; 82530

== ENCOUNTER 2024-05-19 11:11 | Emergency (ER) | payer OTHER ==
[~2024-05-19] VITALS: Ht 185.4 cm; Wt 86.2 kg
[2024-05-19 12:08] LABS: BASOPHILS ABSOLUTE AUTO 0.02 K/mm3 (0.00-0.23); BASOPHILS PERCENT AUTO 0 % (0-2); EOSINOPHILS PERCENT AUTO 0 % (0-6); Hemoglobin 12.3 g/dL (13.5-17.5); IMMATURE GRAN ABSOLUTE AUTO 0.07 K/mm3 (0.00-0.10); IMMATURE GRAN PERCENT AUTO 1 % (0-1); LYMPHOCYTES PERCENT AUTO 6 % (21-46); MONOCYTES ABSOLUTE AUTO 1.14 K/mm3 (0.16-1.47); MONOCYTES PERCENT AUTO 8 % (4-13); Mean Corpuscular HGB 28.9 pg (26.0-34.0); Mean Corpuscular HGB Conc 35.1 g/dL (31.5-36.5); Mean Corpuscular Volume 82 fL (80-100); Mean Platelet Volume 10.3 fL (9.1-12.4); NEUTROPHILS ABSOLUTE AUTO 12.16 K/mm3 (1.96-9.15); NEUTROPHILS PERCENT AUTO 86 % (41-73); Platelet Count 228 K/mm3 (150-400); RDW Coefficient Variation 12.7 % (11.7-14.2); RDW Standard Deviation 38.3 fL (35.1-46.3); Red Blood Cell Count 4.25 M/mm3 (4.30-5.90); White Blood Cell Count 14.19 K/mm3 (4.00-11.30)
[2024-05-19 12:50] LABS: Albumin, Blood 3.4 g/dL (3.4-5.0); Albumin/Globulin Ratio 0.7 (0.8-1.8); Bilirubin, Total 0.3 mg/dL (0.1-1.0); Bun/Creatinine Ratio 34.5 (12.0-20.0); Calcium, Blood 9.2 mg/dL (8.5-10.1); Creatinine, Blood 1.19 mg/dL (0.60-1.20); Globulin, Blood 5.1 g/dL (2.2-4.0); Potassium, Blood 3.8 mmol/L (3.5-5.5); Total Protein, Blood 8.5 g/dL (6.4-8.2)
[2024-05-19] MEDS ORDERED: Lactated Ringer's 1,000 ML IV ONE (15:30)
[2024-05-19] MEDS ORDERED: Ondansetron HCl 2 MG / ML 2ML Vial IV ONE (15:30)
[2024-05-19 15:46] LABS: Source, Urine Clean Catch
[2024-05-19 15:56] LABS: Appearance, Urine Hazy (Clear); Bilirubin, Urine Neg (Neg); Blood, Urine 3+ (Neg); Glucose Qualitative, Urine 4+ (Neg); Ketones, Urine 2+ (Neg); Leukocyte Esterase, Urine 2+ (Neg); Nitrite, Urine Pos (Neg); Protein, Urine 3+ (Neg); Specific Gravity, Urine 1.015 (1.003-1.022); Urobilinogen, Urine NORM (Normal)
[2024-05-19 16:21] LABS: Influenza B, PCR NEGATIVE (NEGATIVE); Resp Syncytial Virus, PCR NEGATIVE (NEGATIVE); SARS-Cov-2 (COVID-19) PCR, MMC NEGATIVE (NEGATIVE)
[2024-05-19 16:22] LABS: Influenza A, PCR POSITIVE (NEGATIVE)
[2024-05-19 16:23] LABS: Color, Urine Pale Yellow (P-Yellow)
[2024-05-19 16:25] LABS: Bacteria Many /hpf; Squamous Epithelial Cells Rare /hpf (Few)
[2024-05-19] MEDS ORDERED: CefTRIAXone Sodium 1,000 MG in NS 50 ML IV ONE (17:00)
[2024-05-19] MEDS ORDERED: CEPH500 PO (17:04)
[2024-05-19 18:17] VITALS: BP 136/73
== END 2024-05-19 18:32 | disposition home or self-care (01) ==
LOC: ER 11:11
PROVIDERS: Emergency Medicine; Physician Assistant
DX: J10.1 Influenza due to other identified influenza virus with other respiratory manifestations (principal); N39.0 Urinary tract infection, site not specified; Z79.2 Long term (current) use of antibiotics; Z79.4 Long term (current) use of insulin; Z87.891 Personal history of nicotine dependence
CPT/HCPCS: 0241U; 74176; 80053; 81001; 83690; 85025; 87077; 87086; 87147; 87186; 96361; 96365; 99285-25; J0696; J2405; J7120

== ENCOUNTER → 2024-06-01 | Outpatient (CLI) | payer OTHER ==
[~2024-06-01] MED LIST changes: +CEPH500 PO
== END | disposition home or self-care (01) ==
LOC: LAB SHORT 15:47 → LAB 15:47
DX: N39.0 Urinary tract infection, site not specified (principal); A49.9 Bacterial infection, unspecified
CPT/HCPCS: 87086

== ENCOUNTER → 2024-07-15 | Outpatient (CLI) | payer OTHER | LOC: LAB 15:55 → LAB SHORT 15:55 | DX: N39.0 Urinary tract infection, site not specified (principal) ==

== ENCOUNTER → 2024-11-02 | Outpatient (CLI) | payer OTHER ==
[2024-11-02 18:54] LABS: BASOPHILS ABSOLUTE AUTO 0.05 K/mm3 (0.00-0.23); BASOPHILS PERCENT AUTO 1 % (0-2); EOSINOPHILS ABSOLUTE AUTO 0.28 K/mm3 (0.00-0.68); EOSINOPHILS PERCENT AUTO 3 % (0-6); Hematocrit 37.1 % (37.0-53.0); Hemoglobin 12.9 g/dL (13.5-17.5); IMMATURE GRAN ABSOLUTE AUTO 0.06 K/mm3 (0.00-0.10); IMMATURE GRAN PERCENT AUTO 1 % (0-1); LYMPHOCYTES ABSOLUTE AUTO 1.55 K/mm3 (0.84-5.20); LYMPHOCYTES PERCENT AUTO 18 % (21-46); MONOCYTES ABSOLUTE AUTO 0.94 K/mm3 (0.16-1.47); MONOCYTES PERCENT AUTO 11 % (4-13); Mean Corpuscular HGB Conc 34.8 g/dL (31.5-36.5); Mean Corpuscular Volume 84 fL (80-100); NEUTROPHILS ABSOLUTE AUTO 5.79 K/mm3 (1.96-9.15); NEUTROPHILS PERCENT AUTO 67 % (41-73); NRBC ABSOLUTE 0.00 K/mm3 (0.00-0.02); NRBC Auto 0.0 /100 WBC (0.0-0.2); Platelet Count 296 K/mm3 (150-400); RDW Coefficient Variation 12.3 % (11.7-14.2); RDW Standard Deviation 37.5 fL (35.1-46.3)
== END | disposition home or self-care (01) ==
LOC: LAB SHORT 18:42 → LAB 18:42
DX: L97.929 Non-pressure chronic ulcer of unspecified part of left lower leg with unspecified severity (principal); L72.9 Follicular cyst of the skin and subcutaneous tissue, unspecified; R23.4 Changes in skin texture
CPT/HCPCS: 85025; 85651; 86140

== ENCOUNTER → 2025-03-03 | Outpatient (CLI) | payer OTHER ==
[2025-03-03 15:43] LABS: Source, Urine Voided
[2025-03-03 15:54] LABS: BASOPHILS ABSOLUTE AUTO 0.04 K/mm3 (0.00-0.23); BASOPHILS PERCENT AUTO 0 % (0-2); EOSINOPHILS ABSOLUTE AUTO 0.23 K/mm3 (0.00-0.68); EOSINOPHILS PERCENT AUTO 2 % (0-6); Hematocrit 38.1 % (37.0-53.0); Hemoglobin 13.3 g/dL (13.5-17.5); IMMATURE GRAN ABSOLUTE AUTO 0.04 K/mm3 (0.00-0.10); IMMATURE GRAN PERCENT AUTO 0 % (0-1); LYMPHOCYTES ABSOLUTE AUTO 1.64 K/mm3 (0.84-5.20); LYMPHOCYTES PERCENT AUTO 16 % (21-46); MONOCYTES ABSOLUTE AUTO 0.93 K/mm3 (0.16-1.47); MONOCYTES PERCENT AUTO 9 % (4-13); Mean Corpuscular HGB Conc 34.9 g/dL (31.5-36.5); Mean Corpuscular Volume 84 fL (80-100); NEUTROPHILS ABSOLUTE AUTO 7.13 K/mm3 (1.96-9.15); NEUTROPHILS PERCENT AUTO 71 % (41-73); NRBC ABSOLUTE 0.00 K/mm3 (0.00-0.02); NRBC Auto 0.0 /100 WBC (0.0-0.2); Platelet Count 305 K/mm3 (150-400); RDW Coefficient Variation 12.1 % (11.7-14.2); RDW Standard Deviation 36.5 fL (35.1-46.3)
[2025-03-03 16:23] LABS: Alanine Aminotransfer (ALT/SGP 42 U/L (12-78); Albumin, Blood 3.7 g/dL (3.4-5.0); Albumin/Globulin Ratio 0.9 (0.8-1.8); Anion Gap 9 mmol/L (3-11); Aspartate Aminotrans (AST/SGOT 20 U/L (12-37); Bilirubin, Total 0.3 mg/dL (0.1-1.0); Blood Urea Nitrogen 31 mg/dL (8-24); CHOL/HDL RATIO 5.4; CO2, Blood 25 mmol/L (21-32); Calcium, Blood 9.2 mg/dL (8.5-10.1); Chloride, Blood 106 mmol/L (98-108); Cholesterol 185 mg/dL (50-200); Creatinine, Blood 1.36 mg/dL (0.60-1.20); Globulin, Blood 4.2 g/dL (2.2-4.0); Glucose, Blood 218 mg/dL (70-99); HDL Cholesterol 34 mg/dL (>39); LDL/HDL RATIO 3.0; Low Density Lipoprotein Chol 103 mg/dL (0-110); Potassium, Blood 3.8 mmol/L (3.5-5.5); Sodium, Blood 136 mmol/L (136-145); Total Protein, Blood 7.9 g/dL (6.4-8.2); Triglycerides 240 mg/dL (30-160); Very Low Density Lipoprot Chol 48 mg/dL (6-32)
[2025-03-03 16:26] LABS: Bilirubin, Urine Neg (Neg); Color, Urine Yellow (P-Yellow); Glucose Qualitative, Urine 4+ (Neg); Ketones, Urine Neg (Neg); Leukocyte Esterase, Urine 3+ (Neg); Protein, Urine 3+ (Neg); Specific Gravity, Urine 1.015 (1.003-1.022); Urobilinogen, Urine NORM (Normal)
[2025-03-03 16:33] LABS: White Blood Cells, Urine 50-100 /hpf (0-5)
[2025-03-03 16:42] LABS: Creatinine, Urine Random 156.0 mg/dL (27.00-270.00)
[2025-03-03 17:29] LABS: Microalbumin, Random Urine 336.0 mg/L (0.000-20.000)
== END | disposition home or self-care (01) ==
LOC: LAB SHORT 15:40 → LAB 15:40
PROVIDERS: Family Medicine
DX: E10.8 Type 1 diabetes mellitus with unspecified complications (principal); Z87.438 Personal history of other diseases of male genital organs
CPT/HCPCS: 80053; 80061; 81001; 82043; 82570; 85025; 87077; 87086; 87147; 87186